=== PATIENT | male | born 1950 | race Caucasian/White ===

== ENCOUNTER 2023-12-22 06:59 | Outpatient (CLI) | payer MEDICARE | END 2023-12-22 07:00 | disposition home or self-care (01) | LOC: BICULT 06:59 | PROVIDERS: ATTEND Family Medicine | DX: Z13.6 Encounter for screening for cardiovascular disorders (principal); Z12.2 Encounter for screening for malignant neoplasm of respiratory organs; Z87.891 Personal history of nicotine dependence; J21.9 Acute bronchiolitis, unspecified; J42 Unspecified chronic bronchitis; I70.0 Atherosclerosis of aorta; I77.811 Abdominal aortic ectasia | CPT/HCPCS: 71271; 76775 ==

== ENCOUNTER 2024-03-29 12:28 | Outpatient (CLI) | payer MEDICARE | END 2024-03-29 12:29 | disposition home or self-care (01) | LOC: RAD 12:28 | PROVIDERS: ATTEND Internal Medicine | DX: R06.00 Dyspnea, unspecified (principal); J98.4 Other disorders of lung | CPT/HCPCS: 71046 ==

== ENCOUNTER 2025-02-14 08:00 | Outpatient (CLI) | payer MEDICARE | END 2025-02-14 08:01 | disposition home or self-care (01) | LOC: PET 08:00 | PROVIDERS: ATTEND Family Medicine | DX: R91.8 Other nonspecific abnormal finding of lung field (principal) | CPT/HCPCS: 78815; A9552 ==

== ENCOUNTER 2025-04-25 13:14 | Outpatient (CLI) | payer MEDICARE | END 2025-04-25 13:15 | disposition home or self-care (01) | LOC: CT 13:14 | PROVIDERS: ATTEND Internal Medicine | DX: J18.9 Pneumonia, unspecified organism (principal); R91.1 Solitary pulmonary nodule; J43.9 Emphysema, unspecified; J47.9 Bronchiectasis, uncomplicated; J98.4 Other disorders of lung | CPT/HCPCS: 71250 ==